=== PATIENT | male | born 1980 | race Caucasian/White ===

== ENCOUNTER 2016-08-29 11:17 | Emergency (ER) | payer OTHER ==
[2016-08-29 11:27] VITALS: BP 128/88
[2016-08-29] MEDS ORDERED: NACL 0.9% 500 ML IR ONE (12:00)
[2016-08-29] MEDS: NACL 0.9% IR ONE (12:14)
--- NOTE | 2016-08-29 13:03 | Emergency Department Report ---
ED Laceration HPI - HPI Chief Complaint: Wound/Laceration Stated Complaint: LAC TO FACIAL AREA Time Seen by Provider: 08/29/16 12:01 Occurred When: Today Location: Head Severity: mild Tetanus Status: Not up to Date Laceration Symptoms: No Foreign Body Sensation, No Numbness, No Weakness, No Pain Other History: 36-year-old male states that he was cutting down a tree and a limb fell and hit him against the right face. states that cut is through only the superficial layer. denies other injury ED Review of Systems ROS: Stated complaint: LAC TO FACIAL AREA Other details as noted in HPI Constitutional: denies: chills, fever Eyes: denies: eye pain, eye discharge, vision change ENT: denies: ear pain, throat pain Respiratory: denies: cough, shortness of breath, wheezing Cardiovascular: denies: chest pain, palpitations Endocrine: no symptoms reported Gastrointestinal: denies: abdominal pain, nausea, diarrhea Genitourinary: denies: urgency, dysuria Musculoskeletal: denies: back pain, joint swelling, arthralgia Skin: other (lac). denies: rash, lesions Neurological: denies: headache, weakness, paresthesias Psychiatric: denies: anxiety, depression Hematological/Lymphatic: denies: easy bleeding, easy bruising ED Past Medical Hx - Past Medical History Previous Medical History?: No - Surgical History Past Surgical History?: No - Social History Smoking Status: Never Smoker Substance Use Type: Alcohol - Medications Home Medications: Home Medications Medication Instructions Recorded Confirmed Last Taken Type traMADol [Ultram 50 MG tab] 50 mg PO Q6HR PRN #14 tablet 08/29/16 Unknown Rx Laceration Physical Exam - Exam General: Vital signs noted. No distress. Alert and acting appropriately. Wound Length (cm): 8 Laceration Location: Head Laceration Exam: Yes Normal Distal CMS, No Foreign Body, No Exposed Tendon, Vessel, or Nerve, No Tendon Injury ED Course Vital Signs 08/29/16 11:24 Temperature 98.5 F Pulse Rate 63 Respiratory 16 Rate Blood Pressure 128/88 O2 Sat by Pulse 97 Oximetry - Procedure Description Procedures done: Laceration is 8 cm to the right face. betadine used to clean the area. NS 500 ml used to irrigate. 2%lidocaine used to anesthatize. 5-0 nylon sutures used to bring wound edges together. 14 sutures used. tolereated procedure well. ED Medical Decision Making - Medical Decision Making resting comfortably. NAD at this time,. Critical care attestation.: If time is entered above; I have spent that time in minutes in the direct care of this critically ill patient, excluding procedure time. ED Disposition Clinical Impression: Laceration of skin of face Disposition: DISCHARGED TO HOME OR SELFCARE Is pt being admited?: No Does the pt Need Aspirin: No Condition: Good Instructions: Laceration (ED), Suture Care (ED) Additional Instructions: come back in 5 days for suture removal. (09/03/15.) Prescriptions: traMADol [Ultram 50 MG tab] 50 mg PO Q6HR PRN #14 tablet PRN Reason: Pain Time of Disposition: 13:03
== END 2016-08-29 13:14 | disposition home or self-care (01) ==
LOC: ED 11:17
DX: S01.81XA Laceration without foreign body of other part of head, initial encounter (principal); W20.8XXA Other cause of strike by thrown, projected or falling object, initial encounter; Y93.89 Activity, other specified; Y99.8 Other external cause status; Y92.89 Other specified places as the place of occurrence of the external cause